=== PATIENT | male | born 1960 | race Caucasian/White ===

== ENCOUNTER → 2023-11-19 17:26 | Outpatient (REF) | payer OTHER, MEDICARE, SELFPAY | LOC: PAVMRI 17:26 | PROVIDERS: ATTENDING PHYSICIAN Family Medicine | DX: M54.50 Low back pain, unspecified (principal); M54.2 Cervicalgia | CPT/HCPCS: 72141; 72148 ==

== ENCOUNTER 2024-11-01 09:49 | Emergency (ER) | payer OTHER, MEDICARE, SELFPAY ==
[2024-11-01 10:21] LABS: % Basophils 0.8 % (0-2); % Eosinophils 4.3 % (0-6); % Immature Granulocytes 0.8 % (0-0.5); % Lymphocytes 19.8 % (20.5-51.1); % Neutrophils 65.3 % (42.2-75.2); Absolute Basophils 0.1 10^3/uL (0-0.2); Absolute Eosinophils 0.4 10^3/uL (0-0.7); Absolute Immature Granulocytes 0.1 10^3/uL (0-0.05); Absolute Lymphocytes 1.8 10^3/uL (1.2-3.4); Absolute Monocytes 0.8 10^3/uL (0.1-0.6); Hematocrit 47.4 % (39.0-52.0); Hemoglobin 16.7 g/dL (13.0-18.0); Mean Corp Hgb Conc. 35.2 g/dL (33.0-37.0); Mean Corpuscular Hgb 33.5 pg (27.0-31.0); Mean Corpuscular Volume 95.2 fL (80.0-94.0); Mean Platelet Volume 10.4 fL (7.4-10.4); Nucleated Red Blood Cells % 0 % (-); Platelet Count 199 10^3/uL (130-400); Red Blood Cell Count 4.98 10^6/uL (4.70-6.10); Red Cell Dist. Width 13.6 % (11.5-14.5); White Blood Cell Count 9.2 10^3/uL (4.8-10.8)
[2024-11-01 10:36] LABS: ALT (SGPT) 16 U/L (0-50); AST (SGOT) 17 U/L (17-59); Albumin 4.1 g/dl (3.5-5.0); Alkaline Phosphatase 49 U/L (38-126); Blood Urea Nitrogen 15 mg/dl (9-20); Calcium 9.5 mg/dl (8.4-10.2); Carbon Dioxide 30 mmol/L (22-30); Chloride 100 mmol/L (98-107); Glucose 156 mg/dl (70-99); Lipase 199 U/L (23-300); Potassium 4.1 mmol/L (3.5-5.1); Sodium 137 mmol/L (135-145); Total Bilirubin 0.6 mg/dl (0.2-1.3); Total Protein 7.1 g/dl (6.3-8.2); eGFR > 60.00
[2024-11-01 11:00] VITALS: BP 122/90
--- NOTE | 2024-11-01 11:17 | ED.GENMED ---
History of Present Illness
General
Chief Complaint: Abdominal Symptoms
Time Seen by Provider: 11/01/24 10:58
History of Present Illness
History of Present Illness:
Patient is a 64-year-old male with history of hypertension, hyperlipidemia, prior upper GI bleed presenting to the emergency department with abdominal pain. Patient states that the pain is in his right upper quadrant. It started last week after he
slipped and landed on the top of his hold of the car. He states that his abdomen landed on the jain and since then has been having some pain. He does note that there is a weird feeling that has been starting to spread from his right upper quadrant
to his right flank. No pain to the flank. He also notes that he has intermittent bright red blood when he wipes. He is concerned as he has history of upper GI bleed from a ulcer. He denies any melena or hematochezia. He states that the blood is
only when he wipes. He does note occasional straining. He did thing that it could be related to hemorrhoids. He has not noticed any in a few days. No vomiting. No diarrhea. No fevers or chills
Past History
Past History
ED Past Medical History: CAD, COPD, HTN, Hypercholesterolemia, [place], Psychiatric (Anxiety), Other (Non STEMI, Renal Insufficiency, COPD, ADD) and Other (GI bleed 2018)
ED Past Surgical History: Orthopedic
PSI?: No
Social History
Tobacco: Former smoker
Alcohol: None
Drug: None
Personal: Single
Living: alone
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
Family History
Family History: Other
Phy Exam
Physical Exam
Physical Exam:
GENERAL: in no acute distress
HEENT: normocephalic, extraocular movements intact, moist oral mucosa
NECK: normal inspection
RESPIRATORY: no respiratory distress, clear to auscultation bilaterally
CARDIOVASCULAR: regular rate and rhythm
ABDOMEN/: soft, non-distended, mild right upper quadrant tenderness, no rebound or guarding, no rash
EXTREMITIES: non-tender, no edema/swelling
NEUROLOGIC: awake and alert, moves all extremities
SKIN: warm
Course
Orders/Labs/Results
Orders:
Orders
11/01/24 10:00
Complete Blood Count/With Diff Urgent
Comprehensive Metabolic Panel Urgent
Lipase Urgent
11/01/24 11:17
CT Abd/pelvis W Iv Cont Urgent
Comment:
Reason For Exam: RUQ pain
11/01/24 11:58
Urinalysis Reflex To Culture Urgent
Date Specimen was Collected: 11/01/24
Time Specimen was Collected: 11:56
11/01/24 13:31
Acetaminophen [Tylenol] 650 mg .ROUTE .STK-MED ONE
11/01/24 13:36
Acetaminophen [Tylenol] 650 mg PO NOW STA
Abnormal Lab Results
11/01/24
10:00
MCV 95.2 H fL
(80.0-94.0)
MCH 33.5 H pg
(27.0-31.0)
Abs Immat Gran (auto) 0.1 H 10^3/uL
(0-0.05)
Absolute Monos (auto) 0.8 H 10^3/uL
(0.1-0.6)
Immature Gran % 0.8 H %
(0-0.5)
Lymphocytes % 19.8 L %
(20.5-51.1)
Glucose 156 H mg/dl
(70-99)
11/01/24 10:00
11/01/24 10:00
Vital Signs
Initial and Last Documented VS:
Initial Vital Signs
Temp Pulse Resp Pulse Ox
98.5 F 109 16 92
11/01/24 09:50 11/01/24 09:50 11/01/24 09:50 11/01/24 09:50
Last Documented Vital Signs
Temp Pulse Resp BP Pulse Ox
98.5 F 109 16 122/90 92
11/01/24 09:50 11/01/24 09:50 11/01/24 09:50 11/01/24 11:00 11/01/24 09:50
MDM/Problems Addressed
Differential Diagnosis Includes:
Patient is a 64-year-old man presenting to the emergency department with right upper quadrant pain. Vitals are notable for heart rate in the low 100s though during my evaluation it was in the 90s. Exam does show mild right upper quadrant
tenderness. Differential is broad but consistent MSK pain versus gallbladder etiology as he does have history of gallstones and biliary colic versus the beginning of shingles versus kidney stone. Regarding patient's intermittent bright red blood
per rectum likely hemorrhoids versus fissure. History and exam not consistent with diverticulosis or diverticular. Blood work obtained prior to my evaluation shows a normal hemoglobin and normal LFT. Will proceed with CT abdomen. Patient advised
that if he develops a rash to the area that he has been having pain in the 'weird feeling' that it could be shingles and to be evaluated by provider. He does state that he has history of shingles.
*Critical Care Note
Total Time (30-74mins, 75-104mins- exclusive of procedures): Not Applicable
Update Note
Update Note:
On reevaluation patient resting comfortably. Blood work unremarkable. CT scan likely colitis. Will discharge patient at this time. Patient advised to watch out for rash for shingles.
ED Attending Note
-
Portions of this chart may have been created with voice recognition software.� Occasional wrong word or��sound alike� substitutions may have occurred due to the inherent limitations of voice recognition software.
Discharge Plan
Departure
Patient Disposition: Home (Routine Discharge)
Date of Disposition: 11/01/24
Time of Disposition: 14:16
Patient with high blood pressure during this ER visit?: No
Discharge Problem:
Abdominal pain
Instructions: Colitis - Discharge instructions
Prescriptions:
No Action
carvedilol 6.25 MG tablet
6.25 mg PO BID
alprazolam 1 MG tablet
1 mg PO BIDPRN PRN (Reason: restless leg syndrome)
pantoprazole 40 MG tablet,delayed release (DR/EC)
40 mg PO DAILY PRN (Reason: reflux)
tramadol 50 MG tablet
50 mg PO Q6HPRN PRN (Reason: severe pain)
flecainide 100 MG tablet
100 mg PO Q12H
hydrochlorothiazide 25 mg Tablet
25 mg PO DAILY
acetaminophen 325 mg Capsule
325 mg PO Q6H
fenofibrate 54 mg Tablet
54 mg PO DAILY
Referrals:
Tony Walker DO [Family Provider] -
Activity Restrictions/Additional Instructions:
You were seen in the Emergency Department today for abdominal pain. While you were here we performed blood work, which was reassuring. Your CT scan did show inflammation of your colon. Please watch out for rash for shingles as discussed.
We would like for you to follow up with your primary care physician for further evaluation. If you experience fever, worsening of your symptoms, or develop any other new or concerning symptoms, please return to the Emergency Department immediately.
Please see the attached sheet for additional information.
Interventions
Interventions:
*General Assessment Last Done: 11/01/24 12:10
*ED- Fall Risk Assessment Last Done: 11/01/24 12:10
*ED COVID-19 Vaccine History Last Done: 11/01/24 12:10
XG-Vcyndj-Hqambouerk Assessment Last Done: 11/01/24 12:10
Discharge Date and Time
Print Language: UPPER SORBIAN
[2024-11-01 12:00] VITALS: BP 131/78
[2024-11-01 12:32] LABS: Urine Albumin Negative (Neg - Trace); Urine Bilirubin Negative (Negative); Urine Character Clear (Clear); Urine Color Yellow; Urine Glucose Negative (Negative); Urine Ketone Negative (Negative); Urine Leukocyte Negative (Negative); Urine Nitrite Negative (Negative); Urine Occult Blood Negative (Negative); Urine Urobilinogen Negative (Neg - 1+)
[2024-11-01] MEDS: TYLENOL 650 MG PO (13:36)
[2024-11-01 14:00] VITALS: BP 125/88
== END 2024-11-01 15:18 | disposition home or self-care (01) ==
LOC: EMR 09:49
PROVIDERS: Emergency Medicine; EMERGENCY PHYSICIAN Student in an Organized Health Care Education/Training Program; FAMILY PHYSICIAN Family Medicine
DX: R10.11 Right upper quadrant pain (principal); I10 Essential (primary) hypertension; E78.00 Pure hypercholesterolemia, unspecified; F41.9 Anxiety disorder, unspecified; I25.10 Atherosclerotic heart disease of native coronary artery without angina pectoris; I25.2 Old myocardial infarction; J44.9 Chronic obstructive pulmonary disease, unspecified; F98.8 Other specified behavioral and emotional disorders with onset usually occurring in childhood and adolescence; Z87.891 Personal history of nicotine dependence
CPT/HCPCS: 99284; 74177; 80053; 81003; 83690; 85025; Q9967